=== PATIENT | female | born 1945 | race Two or more races ===

== ENCOUNTER 2017-12-26 14:05 | Outpatient (CLI) | payer MEDICARE, BC | END 2017-12-26 23:59 | disposition home or self-care (01) | LOC: WOU 14:05 | PROVIDERS: ATTEND Surgery | DX: Z42.1 Encounter for breast reconstruction following mastectomy (principal); Z98.82 Breast implant status; Z85.3 Personal history of malignant neoplasm of breast | CPT/HCPCS: A6402; G0463; Z7610 ==